=== PATIENT | male | born 1960 | race African-American/Black ===

== ENCOUNTER 2016-10-26 14:38 | Emergency (ER) | payer OTHER ==
[~2016-10-26] VITALS: Ht 188 cm; Wt 89.8 kg
[2016-10-26 15:16] VITALS: BP 244/114
[2016-10-26] MEDS ORDERED: HYDROcodone/APAP 5/325MG 1 TAB TABLET PO ONE (15:30)
[2016-10-26] MEDS ORDERED: HYDR-971 PO (17:01)
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
== END 2016-10-26 17:13 | disposition home or self-care (01) ==
LOC: ER 14:38
DX: S42.292A Other displaced fracture of upper end of left humerus, initial encounter for closed fracture (principal); I10 Essential (primary) hypertension; V23.4XXA Motorcycle driver injured in collision with car, pick-up truck or van in traffic accident, initial encounter; Y93.89 Activity, other specified; Y99.8 Other external cause status; Y92.410 Unspecified street and highway as the place of occurrence of the external cause
CPT/HCPCS: 73030; 99283

== ENCOUNTER → 2016-11-07 | Outpatient (CLI) | payer BC ==
[2016-10-26 15:16] VITALS: BP 244/114
[~2016-11-07] MED LIST: HYDR-971 PO
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
== END | disposition home or self-care (01) ==
LOC: KCIC MRI 15:04
PROVIDERS: ATTEND Orthopaedic Surgery
DX: S49.92XD Unspecified injury of left shoulder and upper arm, subsequent encounter (principal); M75.102 Unspecified rotator cuff tear or rupture of left shoulder, not specified as traumatic; X58.XXXD Exposure to other specified factors, subsequent encounter
CPT/HCPCS: 73221

== ENCOUNTER 2017-07-30 21:38 | Emergency (ER) | payer BC ==
[2017-07-30 21:52] LABS: ADD MAN DIFF? NO
[2017-07-30 21:54] LABS: BASO % 1 % (0-3); EOS # 0.2 x10^3/uL (0.0-0.7); EOS % 4 % (0-3); HEMOGLOBIN 14.7 g/dL (13.0-17.5); LYMPH # 1.9 x10^3/uL (1.0-4.8); LYMPH % 41 % (24-48); MEAN CORPUSCULAR HEMOGLOBIN 31 pg (25-35); MEAN CORPUSCULAR HGB CONC 34 g/dL (31-37); MEAN CORPUSCULAR VOLUME 90 fL (79-100); MONO # 0.5 x10^3/uL (0.0-1.1); MONO % 11 % (0-9); NEUT % 44 % (31-73); PLATELET COUNT 142 x10^3/uL (140-400); RED BLOOD COUNT 4.78 x10^6/uL (4.30-5.70); RED CELL DISTRIBUTION WIDTH 14.9 % (11.5-14.5); WHITE BLOOD COUNT 4.7 x10^3/uL (4.0-11.0)
[2017-07-30 21:58] LABS: AGAP ISTAT 15 mmol/L (6-14); BUN ISTAT 25 mg/dL (8-26); CHLORIDE ISTAT 101 mmol/L (98-110); CREATININE ISTAT 1.7 mg/dL (0.5-1.4); GLUCOSE ISTAT 104 mg/dL (70-99); HEMATOCRIT ISTAT 44 % (37-52); ION CA ISTAT 1.05 mmol/L (1.13-1.32); POTASSIUM ISTAT 3.5 mmol/L (3.5-5.0); SODIUM ISTAT 139 mmol/L (135-145); TOT CO2 ISTAT 27 mmol/L (23-32)
[2017-07-30] MEDS ORDERED: ASPIRIN CHEWABLE 81 MG TABLET. PO (22:00)
[2017-07-30 22:04] LABS: TROPONIN BY ISTAT 0.01 ng/ml (<0.08)
[2017-07-30 22:05] LABS: ANION GAP 7 (6-14); BLOOD UREA NITROGEN 23 mg/dL (8-26); BUN/CREATININE RATIO 13 (6-20); CALCIUM 8.5 mg/dL (8.5-10.1); CARBON DIOXIDE 28 mmol/L (21-32); CHLORIDE 102 mmol/L (98-107); CREATININE 1.8 mg/dL (0.7-1.3); GFR 47.5; GLUCOSE 112 mg/dL (70-99); POTASSIUM 3.4 mmol/L (3.5-5.1); SODIUM 137 mmol/L (136-145)
[2017-07-30] MEDS: ASPIRIN CHEWABLE 81 MG TABLET. PO (22:08)
[2017-07-30] MEDS: NITROGLYCERIN SUBLINGUAL 0.4 MG BOTTLE OF 25. SL ×2 (22:08→22:26)
[2017-07-30 22:09] LABS: ALBUMIN 3.1 g/dL (3.4-5.0); ALBUMIN/GLOBULIN RATIO 0.8 (1.0-1.7); ALK PHOS 99 U/L (46-116); ALT (SGPT) 24 U/L (16-63); AST (SGOT) 21 U/L (15-37); MAGNESIUM 1.9 mg/dL (1.8-2.4); TOTAL BILIRUBIN 0.4 mg/dL (0.2-1.0); TOTAL PROTEIN 7.1 g/dL (6.4-8.2)
[2017-07-30 22:17] LABS: NT-PRO BNP 1941 pg/mL (0-124); TROPONINI < 0.017 ng/mL (0.000-0.055)
[2017-07-30 22:17] LABS: CKMB MASS 1.5 ng/mL (0.0-3.6); CREATINE KINASE 155 U/L (39-308)
[2017-07-30] MEDS: MORPHINE SULFATE 4 MG/ML DISP.SYRIN. IV (22:32)
[2017-07-30] MEDS: IV NORMAL SALINE 1000ML BAG 1,000 ML IV (22:44)
[2017-07-30] MEDS: ONDANSETRON PF 4 MG/2 ML VIAL. IV (22:49)
[2017-07-30] MEDS: LABETALOL 200 MG in 0.9 % SODIUM CHLORIDE 150ML 160 ML IV (22:56)
[2017-07-30] MEDS: FUROSEMIDE 40 MG/4 ML VIAL. IVP (22:56)
[2017-07-30] MEDS ORDERED: CONTRAST GIVEN. MC (23:00)
[2017-07-30] MEDS: NITROGLYCERIN PREMIX 250 ML IV (23:03)
[2017-07-30] MEDS: IOHEXOL 300 MG/ML 100ML VIAL. IV (23:10)
[2017-07-30] MEDS: LABETALOL 20 MG/4 ML DISP.SYRIN. IVP (23:54)
[2017-07-31] MEDS: LABETALOL 20 MG/4 ML DISP.SYRIN. IVP (00:05)
[2017-07-31 00:21] LABS: PROTHROMBIN TIME PATIENT 12.3 SEC (11.7-14.0)
[2017-07-31] MEDS ORDERED: LABETALOL 200 MG in 0.9 % SODIUM CHLORIDE 150ML 160 ML IV (01:00)
== END 2017-07-31 00:40 | disposition short-term general hospital (02) ==
LOC: ER 21:38 → 2 NORTH 22:04
DX: I71.00 Dissection of unspecified site of aorta (principal); R11.0 Nausea; I10 Essential (primary) hypertension
CPT/HCPCS: 36415; 71045; 71275; 80047; 80053; 82553; 83735; 83880; 84484; 85025; 85610; 93005; 96365; 96375; 99291; J1940; J2270; J2405; J3490; J7030; J7050; Q9967